=== PATIENT | male | born 1995 | race Caucasian/White ===

== ENCOUNTER 2017-12-07 07:26 | Emergency (ER) | payer OTHER ==
[~2017-12-07] VITALS: Ht 190.5 cm; Wt 143.0 kg
[~2017-12-07 07:26] MED LIST: AUGMENTIN500 MG OR; AZITHROMYCIN250 MG PO; FLONASE0.05 %; FLOXIN OTIC0.3 % OT; KEPPRA500 M2 PO; MOTRIN400 MG OR
[2017-12-07 08:46] LABS: INFLUENZA A NONE DETECTED (NONE DETECT); INFLUENZA B NONE DETECTED (NONE DETECT)
[2017-12-07] MEDS ORDERED: CLARITIN10 M1 PO (09:02)
[2017-12-07] MEDS ORDERED: AMOXICILLIN500 MG PO (09:02)
[2017-12-07] MEDS ORDERED: GENTAMICIN15 ML/BTL OU (09:02)
[2017-12-07] MEDS ORDERED: (None)3.5 GM OU (09:02)
[2017-12-07 09:24] VITALS: BP 128/69
== END 2017-12-07 09:30 | disposition home or self-care (01) | DRG 125 ==
LOC: ED 07:26
PROVIDERS: Emergency Medicine
DX: H10.9 Unspecified conjunctivitis (principal); J02.9 Acute pharyngitis, unspecified